=== PATIENT | male | born 1955 | race Caucasian/White ===

== ENCOUNTER 2020-02-01 12:20 | Emergency (ER) | payer MEDICARE, MEDICAID ==
[~2020-02-01] VITALS: Ht 185.4 cm; Wt 75.0 kg
[2020-02-01 12:29] VITALS: BP 164/81
[2020-02-01] MEDS ORDERED: SULF1TAB49 PO (14:20)
[2020-02-01] MEDS ORDERED: sulfamethoxazole/trimethoprim DS (800/160mg) tablet PO ONE (14:20)
[2020-02-01] MEDS ORDERED: ondansetron 4mg rapidly disintigrating tab PO ONE (14:30)
[2020-02-01] MEDS ORDERED: HYDROcodone/acetaminophen 5mg/325mg tablet PO ONE (14:30)
== END 2020-02-01 15:02 | disposition home or self-care (01) ==
LOC: ER 12:20
DX: E11.621 Type 2 diabetes mellitus with foot ulcer (principal); L97.512 Non-pressure chronic ulcer of other part of right foot with fat layer exposed; Z88.8 Allergy status to other drugs, medicaments and biological substances; Z79.899 Other long term (current) drug therapy
CPT/HCPCS: 73630; 99284